=== PATIENT | female | born 1990 | race Caucasian/White ===

== ENCOUNTER 2017-03-04 12:50 | Emergency (ER) | payer BC, MEDICAID ==
[2017-03-04] MEDS ORDERED: SODIUM CHLORIDE 0.9% 1,000 ML IV STA (13:27)
[2017-03-04] MEDS ORDERED: ACETAMINOPHEN TAB 500 MG TAB PO STA (13:27)
[2017-03-04] MEDS ORDERED: diphenhydrAMINE 50 MG CAP PO STA (13:36)
--- NOTE | 2017-03-04 13:39 | ED ---
General Adult HPI - General Chief complaint: Fever Stated complaint: eye pain Time Seen by Provider: 03/04/17 13:18 Source: patient, family, RN notes reviewed Mode of arrival: ambulatory Limitations: no limitations - History of Present Illness Initial comments: History of present illness a 26-year-old female here for complaint of sore throat. The patient's temperature is 11.7 she did not know she had that. Patient also has mild swelling to the left upper eyelid and a rash on the outside of her left elbow. It blanches. Mild headache she did have a stomachache the last half an hour 2 days ago. She works in a [employer]. - Related Data Home Medications Medication Instructions Recorded Confirmed No Known Home Medications [No 06/18/14 03/04/17 Known Home Medications] Allergies Allergy/AdvReac Type Severity Reaction Status Date / Time No Known Allergies Allergy Verified 03/04/17 13:11 Review of Systems ROS Statement: Those systems with pertinent positive or pertinent negative responses have been documented in the HPI. Review of systems. The patient has a mild headache no change in visual acuity. Mild swelling to the left upper eyelid highly edematous but not difficulty or pain movement of the eye. She does have a sore throat with enlarged tonsils no stiff neck. She does have a reddened pharynx and tonsillitis. With anterior cervical lymphadenopathy. No chest pain or shortness of breath no cough. She does have a rash which blanches on her left arm. No abdominal pain. Generalized muscle aches and pains with fever. All systems are reviewed Past medical problems significant for polycythemia vera. The patient has not had a phlebotomy for 2 years. She states she lost a lot of weight since then. The patient's surgeries include a laminectomy. Family history father has polycythemia Vera. Patient denies ALLERGIES nonsmoker nondrinker. ROS Other: All systems not noted in ROS Statement are negative. Past Medical History Past Medical History: No Reported History History of Any Multi-Drug Resistant Organisms: None Reported Additional Past Surgical History / Comment(s): Hx. back surgery age 20 Hx. gastric sleeve aug 2012 Past Psychological History: Anxiety, Depression, Panic Disorder Smoking Status: Never smoker Past Alcohol Use History: None Reported Past Drug Use History: None Reported - Past Family History Father Additional Family Medical History / Comment(s): Father - blood disorder Htn both parents General Exam - General Exam Comments Initial Comments: General: The patient is awake and alert, complaining of sore throat. Mild headache but no stiff neck. Rash to her left elbow area. Muscle aches and pains. Vital signs shows temperature 101.7 pulse 120 her story rate 18 pulse ox 98% room air blood pressure 132/79 Eye: Pupils are equal, round and reactive to light, extra-ocular movements are intact ; there is normal conjunctiva bilaterally. No signs of icterus. Left eyelid is mildly edematous. No known causes or ALLERGIES. Ears, nose, mouth and throat: Patient has reddened pharynx and some exudate on the tonsils more on the left than the right. She has circumoral pallor. Neck: The neck is supple, there is no tenderness , positive anterior cervical lymphadenopathy. No meningismus. No stiff neck. Cardiovascular: Tachycardic heart rate 120. Patient does have fever. No murmur, rub or gallop is appreciated. Respiratory: Lungs are clear to auscultation, respirations are non-labored, breath sounds are equal. No wheezes, stridor, rales, or rhonchi. Gastrointestinal: Soft, non-distended, non-tender abdomen without masses or organomegaly noted. There is no rebound or guarding present. No CVA tenderness. Bowel sounds are unremarkable. Patient had 30 minutes of abdominal pain 2 days ago none now. Back: There is no tenderness to palpation in the midline. There is no obvious deformity. No rashes noted. Musculoskeletal: Normal ROM, no tenderness, There is no pedal edema. There is no calf tenderness or swelling. Sensation intact. Pulses equal bilaterally 2+. Patient complains of muscle aches and pains. Neurological: CN II-XII intact, There are no obvious motor or sensory deficits. Coordination appears grossly intact. Speech is normal. No neuro deficits. Skin: Patient has blanching rash on the outside aspect of her left elbow area. She has not been on a new medication, she cannot think of any irritants or thinks may be ALLERGIC to environment. Denies being in the sun. Limitations: no limitations Course Vital Signs 03/04/17 03/04/17 03/04/17 12:52 13:56 14:19 Temperature 101.7 F H 103.1 F H 102.8 F H Pulse Rate 120 H 94 Respiratory 18 16 Rate Blood Pressure 132/79 122/68 O2 Sat by Pulse 98 100 Oximetry 03/04/17 03/04/17 14:37 15:13 Temperature 101.4 F H Pulse Rate 92 Respiratory 16 Rate Blood Pressure 119/66 O2 Sat by Pulse 98 Oximetry Medical Decision Making - Medical Decision Making Medical decision making the patient's labs show white count of 4.6 hemoglobin 10.4 with hematocrit of 38. The patient's urine shows only 5 WBCs and 0 reds. Strep test was negative, influenza AB-, Monospot negative. The patient's electrolytes show potassium 4.0 BUN 6 creatinine 0.66 and GFR greater than 60. The patient's feeling much better after IV he duration and Tylenol and Toradol. We discussed viral versus bacterial infections this time the patient appears to have viral infection. She'll be advised to continue with Tylenol for fever. Follow-up with family physician. Call has been put out to our director stage and I will discuss with him the current findings as the patient has a history of polycythemia vera with recurrent hemoglobin 10 hematocrit 38. And some changes on manual examination of the blood differentials. Patient's rash is gone away shortly couldn't continued on Benadryl 25 mg 4 times daily for the next 3 days. Told increase her fluids use Tylenol. Return to emergency room if she has a difficulties or problems. - Lab Data Result diagrams: 03/04/17 13:45 03/04/17 13:45 Lab Results 03/04/17 03/04/17 03/04/17 Range/Units 13:33 13:45 13:45 WBC 4.6 (3.8-10.6) k/uL RBC 6.02 H (3.80-5.40) m/uL Hgb 10.4 L (11.4-16.0) gm/dL Hct 38.4 (34.0-46.0) % MCV 63.9 L (80.0-100.0) fL MCH 17.3 L (25.0-35.0) pg MCHC 27.1 L (31.0-37.0) g/dL RDW 18.0 H (11.5-15.5) % Plt Count 199 (150-450) k/uL Neutrophils % (Manual) 73.0 % Band Neutrophils % 2.0 % Lymphocytes % (Manual) 12.0 % Monocytes % (Manual) 13.0 % Neutrophils # (Manual) 3.5 (1.3-7.7) k/uL Lymphocytes # (Manual) 0.6 L (1.0-4.8) k/uL Monocytes # (Manual) 0.6 (0-1.0) k/uL Nucleated RBCs 0 (0-0) /100 WBC Manual Slide Review Performed Polychromasia Present Hypochromasia Marked Hypochromasia (manual) Present Poikilocytosis Slight Poikilocytosis (manual Present Anisocytosis Slight Anisocytosis (manual) Present Microcytosis Marked Tear Drop Cells Present Ovalocytes Present Sodium 139 (137-145) mmol/L Potassium 4.0 (3.5-5.1) mmol/L Chloride 106 (98-107) mmol/L Carbon Dioxide 24 (22-30) mmol/L Anion Gap 9 mmol/L BUN 6 L (7-17) mg/dL Creatinine 0.66 (0.52-1.04) mg/dL Est GFR (MDRD) Af Amer >60 (>60 ml/min/1.73 sqM) Est GFR (MDRD) Non-Af >60 (>60 ml/min/1.73 sqM) Glucose 90 (74-99) mg/dL Plasma Lactic Acid Levon (0.7-2.0) mmol/L Calcium 8.3 L (8.4-10.2) mg/dL Total Bilirubin 1.0 (0.2-1.3) mg/dL AST 30 (14-36) U/L ALT 24 (9-52) U/L Alkaline Phosphatase 62 (38-126) U/L Total Protein 7.5 (6.3-8.2) g/dL Albumin 4.3 (3.5-5.0) g/dL Urine Color Urine Appearance (Clear) Urine pH (5.0-8.0) Ur Specific [place] (1.001-1.035) Urine Protein (Negative) Urine Glucose (UA) (Negative) Urine Ketones (Negative) Urine Blood (Negative) Urine Nitrite (Negative) Urine Bilirubin (Negative) Urine Urobilinogen (<2.0) mg/dL Ur Leukocyte Esterase (Negative) Urine WBC (0-5) /hpf Ur Squamous Epith Cells (0-4) /hpf Urine Mucus (None) /hpf Urine HCG, Qual (Not Detectd) Heterophile Antibody (Negative) Influenza Type A RNA (Not Detectd) Influenza Type B (PCR) (Not Detectd) Group A Strep Rapid Negative (Negative) 03/04/17 03/04/17 03/04/17 Range/Units 13:45 13:45 13:45 WBC (3.8-10.6) k/uL RBC (3.80-5.40) m/uL Hgb (11.4-16.0) gm/dL Hct (34.0-46.0) % MCV (80.0-100.0) fL MCH (25.0-35.0) pg MCHC (31.0-37.0) g/dL RDW (11.5-15.5) % Plt Count (150-450) k/uL Neutrophils % (Manual) % Band Neutrophils % % Lymphocytes % (Manual) % Monocytes % (Manual) % Neutrophils # (Manual) (1.3-7.7) k/uL Lymphocytes # (Manual) (1.0-4.8) k/uL Monocytes # (Manual) (0-1.0) k/uL Nucleated RBCs (0-0) /100 WBC Manual Slide Review Polychromasia Hypochromasia Hypochromasia (manual) Poikilocytosis Poikilocytosis (manual Anisocytosis Anisocytosis (manual) Microcytosis Tear Drop Cells Ovalocytes Sodium (137-145) mmol/L Potassium (3.5-5.1) mmol/L Chloride (98-107) mmol/L Carbon Dioxide (22-30) mmol/L Anion Gap mmol/L BUN (7-17) mg/dL Creatinine (0.52-1.04) mg/dL Est GFR (MDRD) Af Amer (>60 ml/min/1.73 sqM) Est GFR (MDRD) Non-Af (>60 ml/min/1.73 sqM) Glucose (74-99) mg/dL Plasma Lactic Acid Levon 0.9 (0.7-2.0) mmol/L Calcium (8.4-10.2) mg/dL Total Bilirubin (0.2-1.3) mg/dL AST (14-36) U/L ALT (9-52) U/L Alkaline Phosphatase (38-126) U/L Total Protein (6.3-8.2) g/dL Albumin (3.5-5.0) g/dL Urine Color Urine Appearance (Clear) Urine pH (5.0-8.0) Ur Specific [place] (1.001-1.035) Urine Protein (Negative) Urine Glucose (UA) (Negative) Urine Ketones (Negative) Urine Blood (Negative) Urine Nitrite (Negative) Urine Bilirubin (Negative) Urine Urobilinogen (<2.0) mg/dL Ur Leukocyte Esterase (Negative) Urine WBC (0-5) /hpf Ur Squamous Epith Cells (0-4) /hpf Urine Mucus (None) /hpf Urine HCG, Qual Not Detected (Not Detectd) Heterophile Antibody Negative (Negative) Influenza Type A RNA (Not Detectd) Influenza Type B (PCR) (Not Detectd) Group A Strep Rapid (Negative) 03/04/17 03/04/17 Range/Units 13:45 13:45 WBC (3.8-10.6) k/uL RBC (3.80-5.40) m/uL Hgb (11.4-16.0) gm/dL Hct (34.0-46.0) % MCV (80.0-100.0) fL MCH (25.0-35.0) pg MCHC (31.0-37.0) g/dL RDW (11.5-15.5) % Plt Count (150-450) k/uL Neutrophils % (Manual) % Band Neutrophils % % Lymphocytes % (Manual) % Monocytes % (Manual) % Neutrophils # (Manual) (1.3-7.7) k/uL Lymphocytes # (Manual) (1.0-4.8) k/uL Monocytes # (Manual) (0-1.0) k/uL Nucleated RBCs (0-0) /100 WBC Manual Slide Review Polychromasia Hypochromasia Hypochromasia (manual) Poikilocytosis Poikilocytosis (manual Anisocytosis Anisocytosis (manual) Microcytosis Tear Drop Cells Ovalocytes Sodium (137-145) mmol/L Potassium (3.5-5.1) mmol/L Chloride (98-107) mmol/L Carbon Dioxide (22-30) mmol/L Anion Gap mmol/L BUN (7-17) mg/dL Creatinine (0.52-1.04) mg/dL Est GFR (MDRD) Af Amer (>60 ml/min/1.73 sqM) Est GFR (MDRD) Non-Af (>60 ml/min/1.73 sqM) Glucose (74-99) mg/dL Plasma Lactic Acid Levon (0.7-2.0) mmol/L Calcium (8.4-10.2) mg/dL Total Bilirubin (0.2-1.3) mg/dL AST (14-36) U/L ALT (9-52) U/L Alkaline Phosphatase (38-126) U/L Total Protein (6.3-8.2) g/dL Albumin (3.5-5.0) g/dL Urine Color Yellow Urine Appearance Cloudy H (Clear) Urine pH 7.0 (5.0-8.0) Ur Specific [place] 1.014 (1.001-1.035) Urine Protein Trace H (Negative) Urine Glucose (UA) Negative (Negative) Urine Ketones Trace H (Negative) Urine Blood Negative (Negative) Urine Nitrite Negative (Negative) Urine Bilirubin Negative (Negative) Urine Urobilinogen <2.0 (<2.0) mg/dL Ur Leukocyte Esterase Moderate H (Negative) Urine WBC 5 (0-5) /hpf Ur Squamous Epith Cells 8 H (0-4) /hpf Urine Mucus Rare H (None) /hpf Urine HCG, Qual (Not Detectd) Heterophile Antibody (Negative) Influenza Type A RNA Not Detected (Not Detectd) Influenza Type B (PCR) Not Detected (Not Detectd) Group A Strep Rapid (Negative) Disposition Clinical Impression: Acute viral syndrome Disposition: HOME SELF-CARE Condition: Fair Instructions: Fever in Adults (ED), Viral Syndrome (ED) Additional Instructions: Increase fluids, take Benadryl 25 mg 4 times daily for the next 2 days. Use Tylenol for fever. Follow-up with family physician for follow-up concerning the blood differential. The strep test which was reported to be negative today may be reported as positive tomorrow which case antibiotics of be called and at that time. Referrals: González Kim MD [Primary Care Provider] - 1-2 days Time of Disposition: 16:30
[2017-03-04 14:25] LABS: ALT 24 U/L (9-52); AST 30 U/L (14-36); Alkaline Phosphatase 62 U/L (38-126); Anion Gap 9 mmol/L; Appearance,Urine Cloudy (Clear); Bilirubin,Urine Negative (Negative); Blood Urea Nitrogen 6 mg/dL (7-17); Calcium 8.3 mg/dL (8.4-10.2); Carbon Dioxide 24 mmol/L (22-30); Chloride 106 mmol/L (98-107); Glucose 90 mg/dL (74-99); Glucose,Urine (UA) Negative (Negative); Ketones,Urine Trace (Negative); Leukocyte Esterase,Urine Moderate (Negative); Mucus,Urine Rare /hpf; Nitrite,Urine Negative (Negative); Non-African American GFR(MDRD) >60 (>60 ml/min/1.73 sqM); Particle Count 14567; Protein,Urine Trace (Negative); Sodium 139 mmol/L (137-145); Specific Gravity,Urine 1.014 (1.001-1.035); Squamous Epithelial Cell,Urine 8 /hpf (0-4); Total Protein 7.5 g/dL (6.3-8.2); UA Billing (MACRO vs. MICRO) MICRO; Urobilinogen,Urine <2.0 mg/dL (<2.0); WBC,Urine 5 /hpf (0-5)
[2017-03-04] MEDS ORDERED: KETOROLAC 30 MG/ML 1 ML VIAL IVP STA (14:26)
[2017-03-04 14:41] LABS: Anisocytosis Slight; CH 17.3; CHCM 27.3; HCT 38.4 % (34.0-46.0); HDW 3.46; HGB 10.4 gm/dL (11.4-16.0); Hypochromasia Marked; MCH 17.3 pg (25.0-35.0); MCHC 27.1 g/dL (31.0-37.0); MCV 63.9 fL (80.0-100.0); Mean Platelet Volume 6.5; Microcytosis Marked; Poikilocytosis Slight; RBC 6.02 m/uL (3.80-5.40); WBC 4.6 k/uL (3.8-10.6)
[2017-03-04 14:56] LABS: Add Differential Manual Differential
[2017-03-04 15:01] LABS: Nucleated Red Blood Cells 0 /100 WBC (0-0); Ovalocytes Present; Polychromasia Present; Total Cells Counted 100
[2017-03-04 15:02] LABS: Manual Review Performed; Tear Drop Cells Present
[2017-03-04 16:38] VITALS: BP 106/65; PULSE 86; RESP 18; TEMP 99.6
== END 2017-03-04 16:39 | disposition home or self-care (01) ==
LOC: EC 12:50
DX: B34.9 Viral infection, unspecified (principal); R00.0 Tachycardia, unspecified
CPT/HCPCS: 99283; 96374; 96361; 36415; 80053; 83605; 85025; 86308; 81001; 81025; 87040; 87086; 87081; 87430; 87502; J1885

== ENCOUNTER → 2017-07-09 | Outpatient (CLI) | payer BC, MEDICAID ==
--- NOTE | 2017-07-09 11:51 | XR ---
EXAMINATION TYPE: XR humerus RT DATE OF EXAM: 07/09/2017 COMPARISON: NONE HISTORY: Pain and swelling TECHNIQUE: 2 views submitted. FINDINGS: The osseous structures are intact and the joint spaces are preserved. IMPRESSION: 1. No acute osseous abnormality.
== END ==
LOC: RADXRMAIN 10:46
PROVIDERS: ATTEND Family Medicine
DX: M79.601 Pain in right arm (principal)

== ENCOUNTER → 2017-08-13 | Outpatient (CLI) | payer MEDICAID ==
--- NOTE | 2017-08-13 08:00 | MR ---
EXAMINATION TYPE: MR shoulder RT wo con DATE OF EXAM: 08/13/2017 COMPARISON: NONE HISTORY: Right shoulder pain TECHNIQUE: Multiplanar, multisequence imaging of the right shoulder is performed without contrast. FINDINGS: Rotator Cuff: Is intrasubstance signal seen in the distal margin of the infraspinatus tendon near the insertion compatible with tendinosis. No definite through thickness tear or retraction identified. T here is edema and ill definition near the musculotendinous junction of supraspinatus tendon compatibl e with tendinosis and bursal surface partial tear or fraying. Acromioclavicular Joint: There is slight elevation of the clavicle relative the acromion. There is no active edema. Glenohumeral Joint: Joint spaces preserved. Inferior glenohumeral ligament intact. No joint effusion. Labrum: The labrum appears grossly intact given limitation of non-arthrogram study. Biceps Tendon: The long head of biceps is in normal location within bicipital groove. Bone marrow signal: No focal abnormal marrow signal is appreciated. Other: No additional significant abnormality is appreciated. IMPRESSION: 1. Findings are suggestive of infraspinatus tendinosis with no definite tear. 2. There is elevation of the clavicle relative to the acromium. No active edema is seen within the garret int and is likely chronic. This can be associated with previous AC joint separation. Correlate for hi story of previous trauma. 3. There is edema and ill definition near the musculotendinous junction of supraspinatus tendon pawel tible with tendinosis and bursal surface partial tear or fraying. No through thickness tear or retrac tion. Trace amount of fluid along the superior margin of the musculotendinous junction most likely is postinflammatory rather than postinfectious but should be correlated clinically
== END | disposition home or self-care (01) ==
LOC: RADMRIMAIN 06:00
PROVIDERS: ATTEND Family Medicine
DX: M75.81 Other shoulder lesions, right shoulder (principal); R60.0 Localized edema

== ENCOUNTER 2019-04-04 11:48 | Emergency (ER) | payer MEDICAID ==
[2019-04-04 11:56] VITALS: RESP 18
[2019-04-04] MEDS ORDERED: SODIUM CHLORIDE 0.9% 1,000 ML IV ONE (12:13)
--- NOTE | 2019-04-04 12:18 | ED ---
General Adult HPI <Yobany Nazario - Last Filed: 04/04/19 15:25> - General Source: patient, RN notes reviewed Mode of arrival: ambulatory Limitations: no limitations <Juan Loving - Last Filed: 04/04/19 15:33> - General Chief complaint: Abdominal Pain Stated complaint: 6wks preg, abd pain Time Seen by Provider: 04/04/19 11:58 - History of Present Illness Initial comments: Romeo is a well-appearing 28 year old female with a past medical history of polycythemia vera. Patient is presenting to the emergency department for a chief complaint of right lower pelvic pain times one day. Patient states that earlier this when she had a lot of cramping in her right lower abdomen and that today she started to notice a sharp pain. States that she is approximately 6 weeks with an LMP of February 18. States that she called her [facility] office of Dr Khan and nurse stated she should come to the ER to rule out ectopic as she has not yet had a confirmed intrauterine . Patient denies any vaginal bleeding. Denies any vaginal discharge. Denies any fevers or chills. Denies any nausea vomiting or diarrhea.Patient has no other complaints at this time including shortness of breath, chest pain, nausea or vomiting, headache, or visual changes. (Juan Loving) - Related Data Home Medications Medication Instructions Recorded Confirmed No Known Home Medications 06/18/14 06/12/18 Allergies Allergy/AdvReac Type Severity Reaction Status Date / Time No Known Allergies Allergy Verified 04/04/19 11:51 Review of Systems ROS Other: All systems not noted in ROS Statement are negative. <Yobany Nazario - Last Filed: 04/04/19 15:25> ROS Other: All systems not noted in ROS Statement are negative. <Juan Loving - Last Filed: 04/04/19 15:33> ROS Statement: Those systems with pertinent positive or pertinent negative responses have been documented in the HPI. 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 back surgery age 20 Hx. gastric sleeve aug 2012, R ankle Past Psychological History: Anxiety, Depression, Panic Disorder Smoking Status: Never smoker Past Alcohol Use History: None Reported Past Drug Use History: None Reported - Past Family History Father Additional Family Medical History / Comment(s): Father - blood disorder Htn both parents <Juan Loving P - Last Filed: 04/04/19 15:33> General Exam Limitations: no limitations General appearance: alert, in no apparent distress Head exam: Present: atraumatic, normocephalic, normal inspection Eye exam: Present: normal appearance, PERRL, EOMI. Absent: scleral icterus, conjunctival injection, periorbital swelling ENT exam: Present: normal exam, mucous membranes moist Neck exam: Present: normal inspection, full ROM. Absent: tenderness, meningismus, lymphadenopathy Respiratory exam: Present: normal lung sounds bilaterally. Absent: respiratory distress, wheezes, rales, rhonchi, stridor Cardiovascular Exam: Present: regular rate, normal rhythm, normal heart sounds. Absent: systolic murmur, diastolic murmur, rubs, gallop, clicks GI/Abdominal exam: Present: soft, tenderness (Minimal right lower quadrant tenderness without guarding or rebound), normal bowel sounds. Absent: distended, guarding, rebound, rigid Expanded GI/Abdominal exam: Absent: psoas sign, obturator sign, heel tap sign, Coleman's sign, Rovsing's sign, tenderness at McBurney's Point External exam: Present: normal external exam. Absent: erythema, swelling, lesions, lacerations, ecchymosis Speculum exam: Present: normal speculum exam. Absent: erythema, vaginal discharge, cervical discharge, vaginal bleeding, foreign body, tissue, laceration By manual exam: Present: normal by manual exam, adnexal tenderness (minimal right sided adnexal tenderness). Absent: cervical motion tenderness, adnexal mass, uterine enlargement, uterine tenderness Neurological exam: Present: alert, oriented X3, CN II-XII intact Psychiatric exam: Present: normal affect, normal mood <Juan Lvoing P - Last Filed: 04/04/19 15:33> Course Vital Signs 04/04/19 04/04/19 11:51 15:06 Temperature 98 F 98.2 F Pulse Rate 81 78 Respiratory 18 18 Rate Blood Pressure 144/90 116/71 O2 Sat by Pulse 100 100 Oximetry Medical Decision Making - Lab Data Result diagrams: 04/04/19 12:41 04/04/19 12:41 <Yobany Nazario - Last Filed: 04/04/19 15:25> - Lab Data Result diagrams: 04/04/19 12:41 04/04/19 12:41 <Juan Loving - Last Filed: 04/04/19 15:33> - Medical Decision Making Discussed patient case with Dr. her terrazas be who is occupational therapy department chair for Dr. manuel. Dr. her mk parker is amenable for patient to be discharge for 48 hour beta Quant and serial beta clots. Patient appears stable at bedside currently. Still to follow-up on Sunday with her [facility]. (Yobany Nazario) 28-year-old female presents to the emergency department for a chief complaint of right lower quadrant pain. Patient is a currently 6 weeks with an LMP of February 18. She is following up with Dr. khan but has not yet had an ultrasound confirming an intrauterine . On exam patient has some right adnexal tenderness which is minimal in nature. Vitals are stable. Hemoglobin is 11.3 which is chronic. CMP is unremarkable. HCG Quant is 511. Urine is negative for infection or blood. Ultrasound was performed which showed no evidence of intrauterine . There is a cystic lesion seen within the right adnexa. Differential includes normal too early to detect, missed , or ectopic . At this time I am not concerned for appendicitis given patient has minimal abdominal tenderness with a normal white count and no fever. Dr Nazario discussed this case with Dr. Taylor who is in call for Dr. Escobar. She recommends repeat beta hCG in 48 hours. Recommends follow-up with Dr Khan. Patient is comfortable with this. Patient will be discharged home to follow-up outpatient however will return if she has any worsening symptoms or severe pain. (Jaun Loving) - Lab Data Lab Results 04/04/19 04/04/19 04/04/19 Range/Units 12:41 12:41 12:41 WBC 4.0 (3.8-10.6) k/uL RBC 6.33 H (3.80-5.40) m/uL Hgb 11.3 L (11.4-16.0) gm/dL Hct 41.0 (34.0-46.0) % MCV 64.8 L (80.0-100.0) fL MCH 17.8 L (25.0-35.0) pg MCHC 27.4 L (31.0-37.0) g/dL RDW 18.2 H (11.5-15.5) % Plt Count 301 (150-450) k/uL Neutrophils % (Manual) 55 % Lymphocytes % (Manual) 27 % Monocytes % (Manual) 17 % Eosinophils % (Manual) 1 % Neutrophils # (Manual) 2.20 (1.3-7.7) k/uL Lymphocytes # (Manual) 1.08 (1.0-4.8) k/uL Monocytes # (Manual) 0.68 (0-1.0) k/uL Eosinophils # (Manual) 0.04 (0-0.7) k/uL Nucleated RBCs 0 (0-0) /100 WBC Manual Slide Review Performed Large Platelets Present Hypochromasia Marked Poikilocytosis Slight Anisocytosis Slight Microcytosis Marked Sodium 139 (137-145) mmol/L Potassium 4.4 (3.5-5.1) mmol/L Chloride 106 (98-107) mmol/L Carbon Dioxide 24 (22-30) mmol/L Anion Gap 9 mmol/L BUN 10 (7-17) mg/dL Creatinine 0.55 (0.52-1.04) mg/dL Est GFR (CKD-EPI)AfAm >90 (>60 ml/min/1.73 sqM) Est GFR (CKD-EPI)NonAf >90 (>60 ml/min/1.73 sqM) Glucose 87 (74-99) mg/dL Calcium 9.1 (8.4-10.2) mg/dL Total Bilirubin 0.8 (0.2-1.3) mg/dL AST 18 (14-36) U/L ALT 18 (9-52) U/L Alkaline Phosphatase 38 (38-126) U/L Total Protein 7.1 (6.3-8.2) g/dL Albumin 4.2 (3.5-5.0) g/dL HCG, Quant 511.9 mIU/mL Urine Color Urine Appearance (Clear) Urine pH (5.0-8.0) Ur Specific Saxe (1.001-1.035) Urine Protein (Negative) Urine Glucose (UA) (Negative) Urine Ketones (Negative) Urine Blood (Negative) Urine Nitrite (Negative) Urine Bilirubin (Negative) Urine Urobilinogen (<2.0) mg/dL Ur Leukocyte Esterase (Negative) Trichomonas Ag (Rapid) Negative (Negative) 04/04/19 Range/Units 12:41 WBC (3.8-10.6) k/uL RBC (3.80-5.40) m/uL Hgb (11.4-16.0) gm/dL Hct (34.0-46.0) % MCV (80.0-100.0) fL MCH (25.0-35.0) pg MCHC (31.0-37.0) g/dL RDW (11.5-15.5) % Plt Count (150-450) k/uL Neutrophils % (Manual) % Lymphocytes % (Manual) % Monocytes % (Manual) % Eosinophils % (Manual) % Neutrophils # (Manual) (1.3-7.7) k/uL Lymphocytes # (Manual) (1.0-4.8) k/uL Monocytes # (Manual) (0-1.0) k/uL Eosinophils # (Manual) (0-0.7) k/uL Nucleated RBCs (0-0) /100 WBC Manual Slide Review Large Platelets Hypochromasia Poikilocytosis Anisocytosis Microcytosis Sodium (137-145) mmol/L Potassium (3.5-5.1) mmol/L Chloride (98-107) mmol/L Carbon Dioxide (22-30) mmol/L Anion Gap mmol/L BUN (7-17) mg/dL Creatinine (0.52-1.04) mg/dL Est GFR (CKD-EPI)AfAm (>60 ml/min/1.73 sqM) Est GFR (CKD-EPI)NonAf (>60 ml/min/1.73 sqM) Glucose (74-99) mg/dL Calcium (8.4-10.2) mg/dL Total Bilirubin (0.2-1.3) mg/dL AST (14-36) U/L ALT (9-52) U/L Alkaline Phosphatase (38-126) U/L Total Protein (6.3-8.2) g/dL Albumin (3.5-5.0) g/dL HCG, Quant mIU/mL Urine Color Light Yellow Urine Appearance Clear (Clear) Urine pH 7.5 (5.0-8.0) Ur Specific Saxe 1.009 (1.001-1.035) Urine Protein Negative (Negative) Urine Glucose (UA) Negative (Negative) Urine Ketones Negative (Negative) Urine Blood Negative (Negative) Urine Nitrite Negative (Negative) Urine Bilirubin Negative (Negative) Urine Urobilinogen <2.0 (<2.0) mg/dL Ur Leukocyte Esterase Negative (Negative) Trichomonas Ag (Rapid) (Negative) Disposition <Yobany Nazario - Last Filed: 04/04/19 15:25> Is patient prescribed a controlled substance at d/c from ED?: No Time of Disposition: 15:31 <Juan Loving - Last Filed: 04/04/19 15:33> Clinical Impression: Pelvic pain, Cyst of ovary, right Disposition: HOME SELF-CARE Condition: Good Instructions (If sedation given, give patient instructions): Abdominal Pain in (ED) Additional Instructions: Please repeat blood work outpatient in 2 days. Please follow-up with Dr. Khan on Sunday. Please return here to the emergency Department if you're having any worsening symptoms or severe pain. Referrals: Abelino Vazquez Jr, [Primary Care Provider] - 1-2 days
[2019-04-04 13:12] LABS: Appearance,Urine Clear (Clear); Bilirubin,Urine Negative (Negative); Blood,Urine Negative (Negative); Color,Urine Light Yellow; Glucose,Urine (UA) Negative (Negative); Ketones,Urine Negative (Negative); Leukocyte Esterase,Urine Negative (Negative); Nitrite,Urine Negative (Negative); PH, Urine 7.5 (5.0-8.0); Protein,Urine Negative (Negative); Specific Gravity,Urine 1.009 (1.001-1.035); Urobilinogen,Urine <2.0 mg/dL (<2.0)
[2019-04-04 13:21] LABS: ALT 18 U/L (9-52); AST 18 U/L (14-36); African American GFR (CKD) >90 (>60 ml/min/1.73 sqM); Albumin 4.2 g/dL (3.5-5.0); Alkaline Phosphatase 38 U/L (38-126); Anion Gap 9 mmol/L; Blood Urea Nitrogen 10 mg/dL (7-17); Calcium 9.1 mg/dL (8.4-10.2); Carbon Dioxide 24 mmol/L (22-30); Chloride 106 mmol/L (98-107); Glucose 87 mg/dL (74-99); Potassium 4.4 mmol/L (3.5-5.1); Sodium 139 mmol/L (137-145); Total Bilirubin 0.8 mg/dL (0.2-1.3); Total Protein 7.1 g/dL (6.3-8.2)
[2019-04-04 13:23] LABS: Anisocytosis Slight; HGB 11.3 gm/dL (11.4-16.0); Hypochromasia Marked; MCH 17.8 pg (25.0-35.0); MCHC 27.4 g/dL (31.0-37.0); MCV 64.8 fL (80.0-100.0); Mean Platelet Volume 8.6; Microcytosis Marked; Platelet Count 301 k/uL (150-450); Poikilocytosis Slight; RBC 6.33 m/uL (3.80-5.40); RDW 18.2 % (11.5-15.5)
[2019-04-04 13:37] LABS: HCG,Quantitative Serum 511.9 mIU/mL
[2019-04-04 13:48] LABS: Eosinophils # (M) 0.04 k/uL (0-0.7); Lymphocytes # (M) 1.08 k/uL (1.0-4.8); Monocytes # (M) 0.68 k/uL (0-1.0); Neutrophils % (M) 55 %; Nucleated Red Blood Cells 0 /100 WBC (0-0); Total Cells Counted 100
[2019-04-04 13:49] LABS: Large Platelets Present
--- NOTE | 2019-04-04 14:16 | US ---
EXAMINATION TYPE: Transabdominal DATE OF EXAM: 04/04/2019 1:42 PM COMPARISON: NONE CLINICAL HISTORY: pain. Right side pain. No spotting. No previous ultrasound. EXAM PERFORMED: Transvaginal (TV) and Transabdominal (TA) EXAM MEASUREMENTS: GESTATIONAL AGE / DATING Dates by LMP: (6 weeks/3 days) EDC: 11/25/2019 Dates by Current Scan for: No IUP seen at this time MATERNAL ANATOMY Uterus: 8.4 x 5.5 x 3.7 cm Right Ovary: 3.7 x 2.3 x 2.3 cm Left Ovary: 3.0 x 2.0 x 2.0 cm Post CDS / Adnexa: anechoic lesion seen adjacent to right ovary in right adnexa = 1.0 x 0.7 x 0.7 cm Presence of free fluid: no Presence of corpus luteal cyst: right hypoechoic lesion - 1.9 x 1.6 x 1.9 cm Presence of subchorionic bleed: no GESTATION / SURVEY IUP: No IUP seen at this time Date of LMP: 02/18/2019, Beta HcG (if available): 511.9 No GS, YS or CRL visualized. Cystic appearing lesion seen adjacent to vs pedunculated from right ova ry= 1.9 cm. IMPRESSION: 1. No evidence of intrauterine . There is a cystic lesion seen within the right adnexa. Diff erential diagnosis would include a normal too early to detect, missed , and given p resence of right adnexal cystic lesion ectopic . Orally with serial beta hCG and pelvic ultr asound as clinically warranted.
[2019-04-04 16:07] VITALS: BP 114/70; PULSE 76; TEMP 98.1
[2019-04-06 14:03] LABS: C. trachomatis,PCR Negative (Neg,Equiv); Chlamydia trachomatis Source Vagina; N. gonorrhoeae,PCR Negative (Neg,Equiv); Neisseria Source Vagina
== END 2019-04-04 16:06 | disposition home or self-care (01) ==
LOC: EC 11:48
DX: O34.81 Maternal care for other abnormalities of pelvic organs, first trimester (principal); N83.201 Unspecified ovarian cyst, right side; Z3A.01 Less than 8 weeks gestation of pregnancy
CPT/HCPCS: 36415; 76801; 76817; 80053; 81003; 84702; 85025; 87491; 87591; 87808; 96360; 99284

== ENCOUNTER → 2019-04-06 | Outpatient (CLI) | payer MEDICAID | END | disposition home or self-care (01) | LOC: LABMAIN 13:03 | PROVIDERS: ATTEND Physician Assistant Medical | DX: O34.81 Maternal care for other abnormalities of pelvic organs, first trimester (principal) | CPT/HCPCS: 36415; 84702 ==

== ENCOUNTER → 2019-04-10 | Outpatient (CLI) | payer MEDICAID ==
[~2019-04-10] MED LIST: METHOTREXATE SODIUM (PF) 25 MG/ML 2 ML VIAL IM ONE
[2019-04-10 17:54] VITALS: BP 117/73; PULSE 73; RESP 18; TEMP 98.1
[2019-04-10 18:50] LABS: ALT 10 U/L (9-52); AST 20 U/L (14-36); African American GFR (CKD) >90 (>60 ml/min/1.73 sqM); Blood Urea Nitrogen 12 mg/dL (7-17)
[2019-04-10 19:06] LABS: Anisocytosis Slight; Basophils # (A) 0.1 k/uL (0-0.2); Basophils % (A) 2 %; Eosinophils # (A) 0.1 k/uL (0-0.7); Eosinophils % (A) 2 %; HCT 39.4 % (34.0-46.0); HGB 10.7 gm/dL (11.4-16.0); Hypochromasia Marked; Lymphocytes # (A) 1.9 k/uL (1.0-4.8); Lymphocytes % (A) 37 %; MCH 17.8 pg (25.0-35.0); MCHC 27.1 g/dL (31.0-37.0); MCV 65.8 fL (80.0-100.0); Mean Platelet Volume 7.3; Microcytosis Marked; Monocytes # (A) 0.4 k/uL (0-1.0); Monocytes % (A) 7 %; Neutrophils # (A) 2.6 k/uL (1.3-7.7); Neutrophils % (A) 50 %; Platelet Count 274 k/uL (150-450); Poikilocytosis Slight; RBC 5.99 m/uL (3.80-5.40); RDW 18.1 % (11.5-15.5); WBC 5.2 k/uL (3.8-10.6)
[2019-04-10 19:07] LABS: HCG,Quantitative Serum 1539.3 mIU/mL
== END ==
LOC: PEDOP 18:15
PROVIDERS: ATTEND Obstetrics & Gynecology Obstetrics
DX: O00.109 Unspecified tubal pregnancy without intrauterine pregnancy (principal); Z3A.00 Weeks of gestation of pregnancy not specified
CPT/HCPCS: 96372; 86900; 86901; 82565; 84450; 84460; 84520; 85025; 86850; 84702; J9260; 99201

== ENCOUNTER → 2019-04-13 | Outpatient (CLI) | payer MEDICAID | END | disposition home or self-care (01) | LOC: RADXRMAIN 14:52 | PROVIDERS: ATTEND Obstetrics & Gynecology Obstetrics | DX: Z53.9 Procedure and treatment not carried out, unspecified reason (principal) ==

== ENCOUNTER → 2019-04-16 | Outpatient (CLI) | payer MEDICAID ==
[2019-04-16 12:41] LABS: Anisocytosis Slight; HCT 40.3 % (34.0-46.0); HGB 10.9 gm/dL (11.4-16.0); Hypochromasia Marked; MCH 18.2 pg (25.0-35.0); MCHC 27.1 g/dL (31.0-37.0); MCV 67.2 fL (80.0-100.0); Mean Platelet Volume 7.3; Microcytosis Marked; Platelet Count 250 k/uL (150-450); Poikilocytosis Slight; RBC 5.99 m/uL (3.80-5.40); RDW 19.2 % (11.5-15.5); WBC 4.3 k/uL (3.8-10.6)
[2019-04-16 18:11] LABS: African American GFR (CKD) 142.8 (60.0-200.0)
== END | disposition home or self-care (01) ==
LOC: LABWHC1 11:47
PROVIDERS: ATTEND Obstetrics & Gynecology Obstetrics
DX: O00.109 Unspecified tubal pregnancy without intrauterine pregnancy (principal)
CPT/HCPCS: 36415; 82565; 84450; 84520; 84702; 85027

== ENCOUNTER → 2019-04-17 | Outpatient (CLI) | payer MEDICAID ==
[~2019-04-17] MED LIST changes: +METHOTREXATE SODIUM (PF) 25 MG/ML 2 ML VIAL IM NR; -METHOTREXATE SODIUM (PF) 25 MG/ML 2 ML VIAL IM ONE
[2019-04-17 13:46] VITALS: BP 116/72; PULSE 73; RESP 16; TEMP 98.3
[2019-04-17 14:05] LABS: Anisocytosis Slight; Basophils % (A) 1 %; Eosinophils # (A) 0.1 k/uL (0-0.7); Eosinophils % (A) 2 %; HCT 41.1 % (34.0-46.0); HGB 11.1 gm/dL (11.4-16.0); Hypochromasia Marked; Lymphocytes # (A) 1.2 k/uL (1.0-4.8); Lymphocytes % (A) 33 %; MCH 18.2 pg (25.0-35.0); MCV 67.5 fL (80.0-100.0); Mean Platelet Volume 7.6; Microcytosis Marked; Monocytes # (A) 0.3 k/uL (0-1.0); Monocytes % (A) 8 %; Neutrophils % (A) 54 %; Platelet Count 260 k/uL (150-450); Poikilocytosis Slight; RBC 6.09 m/uL (3.80-5.40); RDW 19.4 % (11.5-15.5); WBC 3.6 k/uL (3.8-10.6)
[2019-04-17 14:25] LABS: AST 17 U/L (14-36); African American GFR (CKD) >90 (>60 ml/min/1.73 sqM); Blood Urea Nitrogen 13 mg/dL (7-17)
[2019-04-17 18:23] LABS: HCG,Quantitative Serum 2808.3 mIU/mL
[2019-04-17 18:30] LABS: HCG,Qualitative Serum Detected
== END ==
LOC: PROCWHC3 13:22
PROVIDERS: ATTEND Obstetrics & Gynecology
DX: O00.109 Unspecified tubal pregnancy without intrauterine pregnancy (principal); Z3A.00 Weeks of gestation of pregnancy not specified
CPT/HCPCS: 82565; 84450; 84520; 85025; 84702; 36415; 96402; J9260; 84703

== ENCOUNTER → 2019-04-20 | Outpatient (CLI) | payer MEDICAID | END | disposition home or self-care (01) | LOC: LABMAIN 15:12 | PROVIDERS: ATTEND Obstetrics & Gynecology Obstetrics | DX: O00.109 Unspecified tubal pregnancy without intrauterine pregnancy (principal) | CPT/HCPCS: 36415; 84702 ==

== ENCOUNTER → 2019-04-23 | Outpatient (CLI) | payer MEDICAID ==
[2019-04-23 15:30] LABS: Anisocytosis Moderate; HCT 40.4 % (34.0-46.0); Hypochromasia Marked; MCH 18.5 pg (25.0-35.0); MCHC 27.1 g/dL (31.0-37.0); MCV 68.3 fL (80.0-100.0); Mean Platelet Volume 8.1; Microcytosis Marked; Platelet Count 329 k/uL (150-450); Poikilocytosis Slight; RBC 5.92 m/uL (3.80-5.40); RDW 20.6 % (11.5-15.5); WBC 3.8 k/uL (3.8-10.6)
[2019-04-23 18:23] LABS: African American GFR (CKD) 135.7 (60.0-200.0); Non-African American GFR(CKD) 117.1 (60.0-200.0)
== END | disposition home or self-care (01) ==
LOC: LABWHC1 14:16
PROVIDERS: ATTEND Obstetrics & Gynecology Obstetrics
DX: O00.109 Unspecified tubal pregnancy without intrauterine pregnancy (principal)
CPT/HCPCS: 36415; 82565; 84450; 84520; 84702; 85027

== ENCOUNTER → 2019-04-30 | Outpatient (CLI) | payer MEDICAID | END | disposition home or self-care (01) | LOC: LABWHC1 12:25 | PROVIDERS: ATTEND Obstetrics & Gynecology Obstetrics | DX: O00.90 Unspecified ectopic pregnancy without intrauterine pregnancy (principal) | CPT/HCPCS: 36415; 84702 ==

== ENCOUNTER → 2019-05-07 | Outpatient (CLI) | payer MEDICAID | END | disposition home or self-care (01) | LOC: LABWHC1 12:00 | PROVIDERS: ATTEND Obstetrics & Gynecology Obstetrics | DX: O00.90 Unspecified ectopic pregnancy without intrauterine pregnancy (principal) | CPT/HCPCS: 36415; 84702 ==

== ENCOUNTER → 2019-05-14 | Outpatient (CLI) | payer MEDICAID | END | disposition home or self-care (01) | LOC: LABWHC1 12:30 | PROVIDERS: ATTEND Obstetrics & Gynecology Obstetrics | DX: O00.90 Unspecified ectopic pregnancy without intrauterine pregnancy (principal) | CPT/HCPCS: 36415; 84702 ==

== ENCOUNTER → 2019-05-21 | Outpatient (CLI) | payer MEDICAID | END | disposition home or self-care (01) | LOC: LABWHC1 13:37 | PROVIDERS: ATTEND Obstetrics & Gynecology Obstetrics | DX: O00.90 Unspecified ectopic pregnancy without intrauterine pregnancy (principal); Z3A.00 Weeks of gestation of pregnancy not specified | CPT/HCPCS: 36415; 84702 ==

== ENCOUNTER → 2019-05-29 | Outpatient (CLI) | payer MEDICAID | END | disposition home or self-care (01) | LOC: LABWHC1 11:11 | PROVIDERS: ATTEND Obstetrics & Gynecology Obstetrics | DX: O00.90 Unspecified ectopic pregnancy without intrauterine pregnancy (principal) | CPT/HCPCS: 36415; 84702 ==

== ENCOUNTER 2019-08-05 00:23 | Emergency (ER) | payer MEDICAID ==
[2019-08-05 00:28] VITALS: BP 131/86; PULSE 106; RESP 20; TEMP 98
--- NOTE | 2019-08-05 01:09 | ED ---
General Adult HPI - General Chief complaint: Abdominal Pain Stated complaint: rectal prolapse Time Seen by Provider: 08/05/19 00:33 Source: patient Mode of arrival: ambulatory Limitations: no limitations - History of Present Illness Initial comments: 28-year-old female patient presents to the emergency department today for evaluation of possible rectal prolapse. Patient states she has been given with constipation for the last couple of weeks. States she has taken several laxatives. States that today when she was straining to have a bowel movement she felt around her rectal region and felt a "slimy ball". Patient is concerned she may rectal prolapse of presented here for further evaluation. She denies any abdominal pain. Denies any manage he 0 melena. Denies nausea or vomiting. Patient states she has taken milk of magnesia and senna without much relief of constipation. Patient denies any recent rash, fever, chills, shortness breath, chest pain, back pain, numbness, tingling, dizziness, weakness, hematuria, dysuria, urinary urgency, urinary frequency, headache, visual changes, or any other complaints. - Related Data Previous Rx's Medication Instructions Recorded Polyethylene Glycol 3350 [Miralax] 17 gm PO DAILY #30 packet 08/05/19 Allergies Allergy/AdvReac Type Severity Reaction Status Date / Time No Known Allergies Allergy Verified 08/05/19 00:28 Review of Systems ROS Statement: Those systems with pertinent positive or pertinent negative responses have been documented in the HPI. ROS Other: All systems not noted in ROS Statement are negative. 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 back surgery age 20 Hx. gastric sleeve aug 2012, R ankle Past Psychological History: Anxiety, Depression, Panic Disorder Smoking Status: Never smoker Past Alcohol Use History: None Reported Past Drug Use History: None Reported - Past Family History Father Additional Family Medical History / Comment(s): Father - blood disorder Htn both parents General Exam Limitations: no limitations General appearance: alert, in no apparent distress, other (This is a well- developed, well-nourished adult female patient in no acute distress. Vital signs upon presentation are temperature 98.0F, pulse 106, respirations 20, blood pressure 131/86, pulse ox 100% on room air.) ENT exam: Present: normal exam, normal oropharynx, mucous membranes moist Respiratory exam: Present: normal lung sounds bilaterally. Absent: respiratory distress, wheezes, rales, rhonchi, stridor Cardiovascular Exam: Present: regular rate, normal rhythm, normal heart sounds. Absent: systolic murmur, diastolic murmur, rubs, gallop, clicks GI/Abdominal exam: Present: soft, normal bowel sounds. Absent: distended, tenderness, guarding, rebound, rigid Rectal exam: Present: normal inspection, normal rectal tone. Absent: fecal impaction, hemorrhoids Neurological exam: Present: alert, oriented X3, CN II-XII intact Psychiatric exam: Present: normal affect, normal mood Skin exam: Present: warm, dry, intact, normal color. Absent: rash Course Vital Signs 08/05/19 00:24 Temperature 98.0 F Pulse Rate 106 H Respiratory 20 Rate Blood Pressure 131/86 O2 Sat by Pulse 100 Oximetry Medical Decision Making - Medical Decision Making 28-year-old female patient presents to the emergency department today for evaluation possible rectal prolapse. Patient describes a "slimy ball" when straining to have a bowel movement. Did perform rectal exam, no evidence of current rectal prolapse. No current fecal impaction. I did discuss results with the patient. We discussed methods of constipation relief. She'll be given up her prescription for MiraLAX. She is instructed follow up with Neurology for Further Evaluation. Return Parameters Were Discussed in Detail. She Verbalizes Understanding and Agrees with This Plan. Disposition Clinical Impression: Rectal prolapse, Constipation Disposition: HOME SELF-CARE Condition: Good Instructions (If sedation given, give patient instructions): Constipation (ED), High Fiber Diet (ED), Rectal Prolapse (ED) Additional Instructions: Increase fluids. Increase physical activity. Follow-up with her pickle maker for further evaluation. Follow up with your primary care physician for recheck in 1-2 days. Take medications as directed. Return to the emergency department immediately for any new, worsening, or concerning symptoms. Prescriptions: Polyethylene Glycol 3350 [Miralax] 17 gm PO DAILY #30 packet Is patient prescribed a controlled substance at d/c from ED?: No Referrals: Abelino Vazquez Jr, DO [Primary Care Provider] - 1-2 days Davey Arvizu MD [STAFF PHYSICIAN] - 1-2 days Time of Disposition: 01:09
== END 2019-08-05 01:23 | disposition home or self-care (01) ==
LOC: EC 00:23
DX: K62.3 Rectal prolapse (principal); K59.00 Constipation, unspecified; D45 Polycythemia vera
CPT/HCPCS: 99283

== ENCOUNTER → 2019-08-08 | Outpatient (CLI) | payer MEDICAID ==
--- NOTE | 2019-08-08 13:25 | XR ---
EXAMINATION TYPE: XR KUB DATE OF EXAM: 08/08/2019 COMPARISON: NONE HISTORY: Constipation TECHNIQUE: One view abdominal series FINDINGS: The osseous structures are intact. The bowel gas pattern is nonspecific. Small herniation pit or bindu ent lesion involving the femoral neck on the left. Sclerotic margination suggests benign appearance. Measures approximately 5 mm. I question surgical change in the left upper quadrant correlate clinical ly. IMPRESSION: 1. Nonspecific abdomen. There is retained content throughout the bowel correlate for constipation.
[2019-08-08 14:46] LABS: ALT 13 U/L (9-52); AST 24 U/L (14-36); African American GFR (CKD) >90 (>60 ml/min/1.73 sqM); Albumin 4.4 g/dL (3.5-5.0); Alkaline Phosphatase 54 U/L (38-126); Anion Gap 10 mmol/L; Blood Urea Nitrogen 9 mg/dL (7-17); Calcium 9.1 mg/dL (8.4-10.2); Carbon Dioxide 24 mmol/L (22-30); Chloride 105 mmol/L (98-107); Glucose 82 mg/dL (74-99); Potassium 4.6 mmol/L (3.5-5.1); Sodium 139 mmol/L (137-145); Total Bilirubin 0.8 mg/dL (0.2-1.3); Total Protein 7.4 g/dL (6.3-8.2)
[2019-08-08 14:55] LABS: Anisocytosis Slight; Basophils # (A) 0.1 k/uL (0-0.2); Basophils % (A) 2 %; Eosinophils # (A) 0.1 k/uL (0-0.7); Eosinophils % (A) 1 %; HCT 41.6 % (34.0-46.0); HGB 11.5 gm/dL (11.4-16.0); Hypochromasia Marked; Lymphocytes # (A) 1.5 k/uL (1.0-4.8); Lymphocytes % (A) 31 %; MCHC 27.6 g/dL (31.0-37.0); MCV 65.3 fL (80.0-100.0); Mean Platelet Volume 7.4; Microcytosis Marked; Monocytes # (A) 0.4 k/uL (0-1.0); Monocytes % (A) 8 %; Neutrophils # (A) 2.7 k/uL (1.3-7.7); Neutrophils % (A) 56 %; Platelet Count 227 k/uL (150-450); RBC 6.37 m/uL (3.80-5.40); RDW 17.6 % (11.5-15.5); WBC 4.8 k/uL (3.8-10.6)
== END | disposition home or self-care (01) ==
LOC: RADXRMAIN 12:48
PROVIDERS: ATTEND Nurse Practitioner Family
DX: K59.09 Other constipation (principal)
CPT/HCPCS: 74018; 80053; 84443; 85025

== ENCOUNTER → 2019-08-20 | Outpatient (CLI) | payer MEDICAID ==
--- NOTE | 2019-08-20 15:49 | CT ---
EXAMINATION TYPE: CT abdomen w con DATE OF EXAM: 08/20/2019 COMPARISON: HISTORY: LUQ pain, constipation CT DLP: 824 mGycm Automated exposure control for dose reduction was used. TECHNIQUE: Helical acquisition of images was performed from the lung bases through the top of iliac crest to include entire abdomen. CONTRAST: Performed with Oral Contrast and with IV Contrast, patient injected with 100 mL of Isovue 300. FINDINGS: LUNG BASES: No significant abnormality is appreciated. LIVER/GB: Within the right lobe of the liver on axial image 28 there is a hypodense focus which becom es less conspicuous on delayed imaging and may represent hemangioma measuring approximately 11 mm. PANCREAS: No significant abnormality is seen. SPLEEN: No significant abnormality is seen. ADRENALS: No significant abnormality is seen. KIDNEYS: No significant abnormality is seen. BOWEL: Retained fecal debris present throughout the distribution of the visualized portion of the co mary grace LYMPH NODES: No significant abnormality is appreciated. OSSEOUS STRUCTURES: No significant abnormality is seen. FREE AIR: No Free Air visible ASCITES: None visible. RETROPERITONEAL ADENOPATHY: No Retroperitoneal Adenopathy visible. OTHER: Postop changes are present at the gastroesophageal junction, there may be recurrent hiatal her jese, there is soft tissue prominence. IMPRESSION: CORRELATE FOR FECAL STASIS. POSSIBLE HEMANGIOMA WITHIN THE LIVER, ADDITIONAL IMAGING COULD BE PERFORM ED FOR BETTER EVALUATION. FINDINGS AT THE GASTROESOPHAGEAL JUNCTION DESCRIBED..
== END | disposition home or self-care (01) ==
LOC: RADCTMAIN 14:28
PROVIDERS: ATTEND Family Medicine
DX: K59.00 Constipation, unspecified (principal); R10.12 Left upper quadrant pain
CPT/HCPCS: 74160; Q9967

== ENCOUNTER 2020-06-16 14:17 | Emergency (ER) | payer MEDICAID, OTHER ==
[2020-06-16 14:21] VITALS: RESP 18
[2020-06-16] MEDS ORDERED: LIDOCAINE 1% INJ 10MG/ML (20 ML MDV) SQ ONE (14:44)
[2020-06-16] MEDS ORDERED: BACITRACIN OINT 1 EACH PACKET TOPICAL STA (14:44)
[2020-06-16] MEDS ORDERED: DIPH,PERTUS(ACELL)TETVAC-LF 0.5 ML VIAL IM ONE (14:44)
--- NOTE | 2020-06-16 15:05 | XR ---
EXAMINATION TYPE: XR ankle complete RT DATE OF EXAM: 06/16/2020 COMPARISON: NONE HISTORY: Pain TECHNIQUE: Frontal, lateral and oblique images of the right ankle are obtained. COMPARISON: None. FINDINGS: There is no acute fracture/dislocation evident. The joint spaces appear within normal laird its. Soft tissue laceration noted 5.7 cm proximal to the ankle mortise. No radiopaque foreign bodies identified. IMPRESSION: There is no acute fracture or dislocation seen.
[2020-06-16] MEDS ORDERED: CEPHALEXIN 500MG STARTER PACK 4 CAP BTL PO STA (15:38)
--- NOTE | 2020-06-16 15:38 | ED ---
General Adult HPI - General Chief complaint: Wound/Laceration Stated complaint: R Leg Lac Time Seen by Provider: 06/16/20 14:32 Source: patient, RN notes reviewed Mode of arrival: ambulatory Limitations: no limitations - History of Present Illness Initial comments: 29-year-old female presents to the emergency room for a chief complaint of laceration. Patient reports that she was carrying a bag full of trash when a piece of glass cut her leg. Patient denies any difficulty moving or flexing her ankle. Patient is not up-to-date on tetanus. Denies any other injuries. Patient states the piece of glass was large and she does not believe tear to be foreign bodies.Patient has no other complaints at this time including shortness of breath, chest pain, abdominal pain, nausea or vomiting, headache, or visual changes. - Related Data Previous Rx's Medication Instructions Recorded polyethylene glycoL 3350 [Miralax] 17 gm PO DAILY #30 packet 08/05/19 Cephalexin [Keflex] 500 mg PO Q6HR 5 Days #20 cap 06/16/20 Allergies Allergy/AdvReac Type Severity Reaction Status Date / Time No Known Allergies Allergy Verified 06/16/20 14:21 Review of Systems ROS Statement: Those systems with pertinent positive or pertinent negative responses have been documented in the HPI. ROS Other: All systems not noted in ROS Statement are negative. 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 back surgery age 20 Hx. gastric sleeve aug 2012, R ankle Past Psychological History: Anxiety, Depression, Panic Disorder Past Alcohol Use History: None Reported Past Drug Use History: None Reported - Past Family History Father Additional Family Medical History / Comment(s): Father - blood disorder Htn both parents General Exam Limitations: no limitations General appearance: alert, in no apparent distress Head exam: Present: atraumatic, normocephalic, normal inspection Eye exam: Present: normal appearance, PERRL, EOMI. Absent: scleral icterus, conjunctival injection, periorbital swelling ENT exam: Present: normal exam, mucous membranes moist Neck exam: Present: normal inspection, full ROM. Absent: tenderness, meningismus, lymphadenopathy Respiratory exam: Present: normal lung sounds bilaterally. Absent: respiratory distress, wheezes, rales, rhonchi, stridor Cardiovascular Exam: Present: regular rate, normal rhythm, normal heart sounds. Absent: systolic murmur, diastolic murmur, rubs, gallop, clicks Extremities exam: Present: full ROM (Full range of motion of the right ankle.), normal capillary refill (Capillary refill less than 2 seconds, DP pulse 2+ right lower extremity.), other (Patient has a 4 cm laceration noted about 5cm distal to the lateral malleolus. No obvious foreign bodies. I can see a small part of the fibulais longus tendon, there are no tendon lacerations or ruptures.) Course Vital Signs 06/16/20 14:18 Temperature 97.9 F Pulse Rate 91 Respiratory 18 Rate Blood Pressure 135/87 O2 Sat by Pulse 99 Oximetry Procedures - Laceration Laceration #1 Consent Obtained: verbal consent Indication: laceration Site: lower extremity Size (cm): 4 Description: linear Depth: simple, single layer Anesthetic Used: lidocaine 1% Anesthesia Technique: local infiltration Amount (mls): 7 Pre-repair: wound explored, irrigated extensively (with saline pressure irrigation), deep structures intact Type of Sutures: nylon Size of Sutures: 4-0 Number of Sutures: 8 Technique: simple, interrupted (7), horizontal mattress (1) Patient Tolerated Procedure: well, no complications Medical Decision Making - Medical Decision Making Wound was irrigated with saline pressure irrigation. It was then approximated using 7 simple sutures and one horizontal mattress. As discussed do not see evidence of foreign body or tendon rupture. Patient will be put on Keflex given that of laceration. She will follow-up with her doctor. She will return here for any worsening symptoms. She will return in 10-14 days for suture removal. Disposition Clinical Impression: Laceration Disposition: HOME SELF-CARE Condition: Good Instructions (If sedation given, give patient instructions): Care For Your Stitches (ED), Laceration (ED) Additional Instructions: Please keep the area clean. Apply antibiotic ointment twice daily. Take antibiotic as directed. Follow-up with your doctor in one to 2 days for recheck. If you have any worsening symptoms or signs of infection such as spreading or streaking redness, drainage, or fever return to the emergency room. Otherwise return in 10-14 days for suture removal. You have 7 simple interrupted sutures and one horizontal mattress in the middle. Prescriptions: Cephalexin [Keflex] 500 mg PO Q6HR 5 Days #20 cap Is patient prescribed a controlled substance at d/c from ED?: No Referrals: Abelino Vazquez Jr, DO [Primary Care Provider] - 1-2 days Time of Disposition: 15:37
[2020-06-16 15:46] VITALS: BP 119/71; PULSE 78; TEMP 98.3
== END 2020-06-16 15:42 | disposition home or self-care (01) ==
LOC: EC 14:17
DX: S81.811A Laceration without foreign body, right lower leg, initial encounter (principal); Z23 Encounter for immunization; W25.XXXA Contact with sharp glass, initial encounter
CPT/HCPCS: 73610; 90715; 99283; 12002; 90471; J2001

== ENCOUNTER 2021-08-12 09:26 | Outpatient (CLI) | payer BC ==
[2021-08-12 10:25] VITALS: BP 123/69; PULSE 83; RESP 16; TEMP 97.3
--- NOTE | 2021-10-14 09:21 | P.MSEPDOC ---
Presenting Problems - Arrival Data Date of Arrival on Unit: 08/12/21 Time of Arrival on Unit: 09:30 Mode of Transport: Ambulatory - Complaint OB-Reason for Admission/Chief Complaint: Decreased Movement Medical History - Information : 2 Para: 0 Term: 0 : 0 Abortions: Spontaneous or Elective: 1 Number of Living Children: 0 - Gestational Age Gestational Age by HUY (wks/days): 22 Weeks and 1 Days - History Comment: previous etopic preg. Review of Systems - Review of Systems Constitutional: No problems Breast: No problems ENT: No problems Cardiovascular: No problems Respiratory: No problems Gastrointestinal: No problems Genitourinary: No problems Musculoskeletal: No problems Neurological: No problems Skin: No problems Vital Signs - Temperature Temperature: 97.3 F Temperature Source: Temporal Artery Scan - Pulse Right Radial Pulse Rate: 83 Pulse Assessment Method: Automatic Cuff - Respirations Respiratory Rate: 16 Oxygen Delivery Method: Room Air O2 Sat by Pulse Oximetry: 98 - Blood Pressure Right Arm Blood Pressure: 123/69 Blood Pressure Mean: 87 Blood Pressure Source: Automatic Cuff Medical Screen Scoring - Assessment - Baby A Baseline FHR: 130 Heart Rate - NICHD Category: Category I (Normal) Physician Notification - Physician Notified Physician Notified Date: 08/12/21 Physician Notified Time: 10:15 Physician: Alejandro Jha Order Received: Yes - Notification Comment Comment: home with instructions follow up next appt dr khan 08/02/21 Maternal Triage Index - Non-Urgent/Priority 4 Non-Urgent Priority 4: Yes Criteria Met for Priority 4: not feeling baby move 22 weeks. fht's 130's pt heard movement on monitor. feeling better. occasional cramp and sharp pain rt lower abd. 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 Case reviewed; plan agreed upon as documented in EMR&OBIX.: Yes Diagnosis: RELATED CONDITIONS, UNSPECIFIED, SECOND TRIMESTER
== END 2021-08-12 10:15 | disposition home or self-care (01) ==
LOC: FBPOP 09:26
PROVIDERS: ATTEND Obstetrics & Gynecology
DX: O26.892 Other specified pregnancy related conditions, second trimester (principal); R10.31 Right lower quadrant pain; Z3A.22 22 weeks gestation of pregnancy
CPT/HCPCS: 99213

== ENCOUNTER 2021-11-01 15:20 | Outpatient (CLI) | payer BC ==
[2021-11-01] MEDS ORDERED: BETAMET ACET-BETAMETH SOD PHOS 6 MG/ML MDV IM SCH (16:00)
--- NOTE | 2021-11-01 16:30 | US ---
EXAMINATION TYPE: US OB TV Cervical Measurement DATE OF EXAM: 11/01/2021 COMPARISON: NONE REASON FOR EXAM: Per Ordering Physician?this transvaginal scan is to assess the CERVICAL LENGTH for i ncompetence or funneling. Pain, known third trimester . GESTATIONAL AGE / DATING Physician Established: (33 weeks/5 days) EDC: 12/15/2021 MATERNAL/ SURVEY CERVICAL LENGTH (transvaginal: norm> 2.5cm): 3.2 cm Ultrasound evidence of shortened cervix? no Ultrasound evidence of funneling? no HEART RATE: 133 bpm RHYTHM: Normal heart tones detected. Cervical length measures within normal limits on images obtained between 3.2 and 3.4 cm. IMPRESSION: As above.
[2021-11-01 16:33] VITALS: BP 132/86; PULSE 80; RESP 16; TEMP 97.8
[2021-11-01] MEDS ORDERED: ACETAMINOPHEN IV (For NPO) 1,000 MG in EMPTY BAG 1 BAG IVPB ONE (16:41)
[2021-11-01] MEDS ORDERED: LACTATED RINGERS 500 ML IV ONE (16:41)
[2021-11-01 17:03] LABS: Appearance,Urine Clear (Clear); Bilirubin,Urine Negative (Negative); Blood,Urine Negative (Negative); Color,Urine Yellow; Glucose,Urine (UA) Negative (Negative); Hyaline Casts,Urine 1 /lpf (0-2); Ketones,Urine Trace (Negative); Leukocyte Esterase,Urine Small (Negative); Mucus,Urine Occasional /hpf; Nitrite,Urine Negative (Negative); Protein,Urine Trace (Negative); RBC,Urine <1 /hpf (0-5); Specific Gravity,Urine 1.025 (1.001-1.035); Squamous Epithelial Cell,Urine 4 /hpf (0-4); WBC,Urine 1 /hpf (0-5)
== END 2021-11-01 18:15 | disposition home or self-care (01) ==
LOC: FBPOP 15:20
PROVIDERS: ATTEND Obstetrics & Gynecology Obstetrics
DX: O60.03 Preterm labor without delivery, third trimester (principal); Z3A.33 33 weeks gestation of pregnancy
CPT/HCPCS: 59025; 96361; 96365; 96372; 81001; 76817; J0131; J0702

== ENCOUNTER 2021-11-02 15:35 | Outpatient (CLI) | payer BC ==
[2021-11-02] MEDS ORDERED: BETAMET ACET-BETAMETH SOD PHOS 6 MG/ML MDV IM SCH (16:00)
[2021-11-02 16:38] VITALS: BP 127/75; PULSE 90; RESP 18; TEMP 97.9
== END 2021-11-02 16:38 | disposition home or self-care (01) ==
LOC: FBPOP 15:35
PROVIDERS: ATTEND Obstetrics & Gynecology Obstetrics
DX: O60.03 Preterm labor without delivery, third trimester (principal); Z3A.29 29 weeks gestation of pregnancy
CPT/HCPCS: 96372; J0702

== ENCOUNTER 2021-12-01 21:48 | Inpatient (IN) | payer BC ==
[2021-12-01] MEDS ORDERED: OXYTOCIN 10 UNIT/ML 1 ML VIAL IM PRN (23:34)
[2021-12-01] MEDS ORDERED: METHYLERGONOVINE 0.2 MG/ML 1 ML AMP IM PRN (23:34)
[2021-12-01] MEDS ORDERED: CARBOPROST TROMETHAMINE 250 MCG/ML 1 ML AMP IM PRN (23:34)
[2021-12-01] MEDS ORDERED: LIDOCAINE 1% (PF) 10 MG/ML (30 ML SDV) SQ PRN (23:34)
[2021-12-01] MEDS ORDERED: TERBUTALINE 1 MG/ML VIAL SQ PRN (23:34)
[2021-12-02 00:14] LABS: Anisocytosis Slight; Basophils # (A) 0.1 k/uL (0-0.2); Basophils % (A) 1 %; Eosinophils % (A) 0 %; HCT 39.2 % (34.0-46.0); HGB 11.4 gm/dL (11.4-16.0); Hypochromasia Marked; Lymphocytes # (A) 1.8 k/uL (1.0-4.8); Lymphocytes % (A) 19 %; MCH 20.5 pg (25.0-35.0); MCV 70.7 fL (80.0-100.0); Mean Platelet Volume 11.3; Microcytosis Marked; Monocytes # (A) 0.7 k/uL (0-1.0); Monocytes % (A) 7 %; Neutrophils # (A) 6.7 k/uL (1.3-7.7); Neutrophils % (A) 71 %; Platelet Count 207 k/uL (150-450); Poikilocytosis Slight; RBC 5.55 m/uL (3.80-5.40); RDW 19.5 % (11.5-15.5); WBC 9.5 k/uL (3.8-10.6)
[2021-12-02] MEDS ORDERED: AMPICILLIN 2,000 MG in SODIUM CHLORIDE 0.9% 100 ML IVPB STA (00:24)
[2021-12-02] MEDS: LACTATED RINGERS 1,000 ML IV SCH ×3 (00:35→06:46)
[2021-12-02] MEDS: AMPICILLIN 1,000 MG in SODIUM CHLORIDE 0.9% 50 ML IVPB SCH ×2 (04:28→08:31)
[2021-12-02] MEDS ORDERED: ROPIVACAINE 5MG/ML 20ML VIAL ONE (06:15)
[2021-12-02] MEDS ORDERED: fentaNYL (PF) 50 MCG/ML 5 ML AMP ONE (06:15)
[2021-12-02] MEDS ORDERED: SODIUM CHLORIDE 0.9% 100 ML BAG ONE (06:15)
[2021-12-02] MEDS ORDERED: OXYTOCIN 30 UNITS/500 ML NS 30 UNIT in SALINE 1 500ML.BAG IV SCH ×2 (08:30→11:45)
--- NOTE | 2021-12-02 09:24 | P.HPOB ---
History of Present Illness H&P Date: 12/02/21 Chief Complaint: IUP @ 38 1/7 weeks, labor This is a 31-year-old 1 para 0 at 38 1/7 (EDC of 12/15 based on first trimester US,) present to labor and delivery with complaints of regular painful contractions. Patient was admitted for labor overnight. Patient denied loss of fluid, good movement was appreciated. Patient has been receiving routine care which has been essentially uncomplicated. Patient has a prior diagnosis of polycythemia, patient did see hematology Dr Rutherford which disagreed with this diagnosis. Patient has been on iron supplementation for anemia. In addition she has a history of a gastric sleeve. On labs she has a blood type of B+, rubella status immune, RPR nonreactive, hep B surface antigen negative, HIV negative. Patient did receive her flu shot on 07/04, T dap on 10/20. Group beta strep cultures were noted to be positive on 11/22. 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 back surgery age 20 Hx. gastric sleeve aug 2012, R ankle Past Anesthesia/Blood Transfusion Reactions: No Reported Reaction Past Psychological History: Anxiety, Depression, Panic Disorder Smoking Status: Never smoker Past Alcohol Use History: None Reported Past Drug Use History: None Reported - Past Family History Father History Unknown: Yes Family Medical History: Blood Disorder, Cancer, Hypertension Additional Family Medical History / Comment(s): Father - blood disorder prostate cancer Medications and Allergies Home Medications Medication Instructions Recorded Confirmed Type Aspirin [Children's Aspirin] 81 mg PO DAILY 08/12/21 12/01/21 History Pnv,Calcium 72/Iron/Folic Acid 1 tab PO DAILY 08/12/21 12/01/21 History [ Plus Tablet] Ferrous Sulfate [Iron] 1 tab PO DAILY 12/01/21 12/01/21 History Allergies Allergy/AdvReac Type Severity Reaction Status Date / Time No Known Allergies Allergy Verified 11/01/21 15:47 Exam Osteopathic Statement: *. No significant issues noted on an osteopathic structural exam other than those noted in the History and Physical/Consult. 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 Breathing is noted to be nonlabored, heart has a regular rate and rhythm, abdomen is gravid and appropriate for gestational age, on cervical exam she is 8/90/-2 station, amniotomy is performed and meconium- stained fluid was appreciated. Results Result Diagrams: 12/01/21 23:50 Abnormal Lab Results - Last 24 Hours (Table) 12/01/21 Range/Units 23:50 RBC 5.55 H (3.80-5.40) m/uL MCV 70.7 L (80.0-100.0) fL MCH 20.5 L (25.0-35.0) pg MCHC 29.0 L (31.0-37.0) g/dL RDW 19.5 H (11.5-15.5) % Assessment and Plan (1) Term Current Visit: Yes Status: Acute Code(s): Z34.90 - ENCNTR FOR SUPRVSN OF NORMAL , UNSP, UNSP TRIMESTER SNOMED Code(s): 18605886 (2) Positive GBS test Current Visit: Yes Status: Acute Code(s): B95.1 - STREPTOCOCCUS, GROUP B, CAUSING DISEASES CLASSD ELSWHR SNOMED Code(s): 354453911 (3) Active labor Current Visit: Yes Status: Acute Code(s): DIJ2761 - SNOMED Code(s): 11 0252915 Plan: 31-year-old at weeks that presents to labor and delivery in active labor. Patient is admitted to labor and delivery, patient progressed through la bor eventually becoming uncomfortable and did request epidural placement. Patient underwent amniotomy this morning, meconium-stained fluid was appreciated. Anticipate spontaneous vaginal delivery.
[2021-12-02] MEDS ORDERED: ZOLPIDEM 5 MG TAB PO PRN (11:36)
[2021-12-02] MEDS ORDERED: diphenhydrAMINE 50 MG/ML 1 ML VIAL IVP PRN ×2 (11:36)
[2021-12-02] MEDS ORDERED: LANOLIN CREAM 5 GM TUBE TOPICAL PRN (11:36)
[2021-12-02] MEDS ORDERED: diphenhydrAMINE 50 MG CAP PO PRN (11:36)
[2021-12-02] MEDS ORDERED: BENZOCAINE/MENTHOL SPRAY 1 GM/SPRAY AEROSOL TOPICAL PRN (11:36)
[2021-12-02] MEDS ORDERED: HYDROCORTISONE 2.5% RECTAL CREAM 30 GM TUBE RECTAL PRN (11:36)
[2021-12-02] MEDS ORDERED: diphenhydrAMINE 25 MG CAP PO PRN (11:36)
[2021-12-02] MEDS ORDERED: SIMETHICONE 80 MG CHEWABLE PO PRN (11:36)
--- NOTE | 2021-12-02 11:36 | P.PROBDLV ---
Vaginal Delivery Note - . Vaginal Delivery Note: 31-year-old 2 para 0010 that presented to labor and delivery at 38 and one sevenths weeks with complaints of regular painful contractions. Patient was admitted to labor and delivery and antibiotic prophylaxis was begun for GBS positive rectovaginal culture. Patient made progress through the evening eventually noted to be 8 cm. Rupture of membrane was preformed, thin meconium- stained fluid was appreciated upon rupture. Patient was noted to be rasmhi irregularly therefore Pitocin augmentation of labor was begun. Patient progressed to complete and precipitously delivered a viable male infant at 1046, weight of 6 lbs. 7 oz. After two-minute delayed the umbilical cord was doubly clamped and cut, the infant was handed to the awaiting ux developer designer given the meconium-stained fluid. Spontaneous cry was noted at . The placenta was delivered spontaneously intact with a three-vessel cord being appreciated. On section the patient's vaginal vault a left lateral sulcus tear was appreciated along with bilateral labial lacerations. Laceration sites were injected with lidocaine. The left labial tear was repaired in usual fashion with 4-0 chromic. The sulcal tear was palpated and with a Funes retractor in place 0 Vicryl was used to close the defect in a running locked fashion. A perineal laceration was appreciated and closed in the usual fashion with 3-0 Rapide. The right labial laceration was not bleeding therefore no repair was needed. On inspection of the patient's sulcal tear a small amount of bleeding was noted therefore Surgicel powder was placed along the edges. The tissue was noted to be friable in nature. Uterus is noted to be firm and below the umbilicus. Estimated blood loss 300 mL. The bladder was drained for approximately 150 mL of clear yellow urine. Patient and tolerated delivery well and are resting comfortably.
[2021-12-02] MEDS: IBUPROFEN 600 MG TAB PO SCH ×3 (12:07→20:00)
[2021-12-02] MEDS: ACETAMINOPHEN TAB 325 MG TAB PO PRN (16:51)
[2021-12-02] MEDS: SENNOSIDES-DOCUSATE SODIUM 1 EACH TAB PO SCH (20:00)
[2021-12-03] MEDS: ACETAMINOPHEN TAB 325 MG TAB PO PRN (00:12)
[2021-12-03] MEDS: IBUPROFEN 600 MG TAB PO SCH ×5 (05:43→23:52)
[2021-12-03 07:43] LABS: Anisocytosis Moderate; Basophils % (A) 0 %; Eosinophils # (A) 0.1 k/uL (0-0.7); Eosinophils % (A) 1 %; Hypochromasia Marked; Lymphocytes # (A) 2.1 k/uL (1.0-4.8); Lymphocytes % (A) 18 %; MCH 20.5 pg (25.0-35.0); MCHC 28.3 g/dL (31.0-37.0); MCV 72.6 fL (80.0-100.0); Mean Platelet Volume 8.9; Microcytosis Marked; Monocytes # (A) 0.6 k/uL (0-1.0); Monocytes % (A) 5 %; Neutrophils # (A) 8.4 k/uL (1.3-7.7); Neutrophils % (A) 72 %; Platelet Count 156 k/uL (150-450); Poikilocytosis Slight; RBC 4.68 m/uL (3.80-5.40); RDW 20.1 % (11.5-15.5); WBC 11.6 k/uL (3.8-10.6)
[2021-12-03 07:46] LABS: HGB 9.6 gm/dL (11.4-16.0)
[2021-12-03] MEDS: PRENATAL VIT-IRON-FOLIC ACID 1 EACH CAP PO SCH (08:35)
[2021-12-03] MEDS: FERROUS SULFATE 325 MG TAB PO SCH (08:35)
[2021-12-03] MEDS: SENNOSIDES-DOCUSATE SODIUM 1 EACH TAB PO SCH ×2 (08:35→19:47)
--- NOTE | 2021-12-03 11:32 | P.DS ---
Providers Date of admission: 12/01/21 23:27 Expected date of discharge: 12/03/21 Attending physician: Lizette Dejesus Primary care physician: Physician Nonstaff - Discharge Diagnosis(es) (1) Normal spontaneous vaginal delivery Current Visit: Yes Status: Acute Hospital Course: The patient is a 31-year-old 1 para 0 admitted at 38 and one sevenths weeks by good dating parameters. She is admitted in early labor with all signs reassuring. Her was uncomplicated and group B strep status is negative. She does carry a history of polycythemia as well as a history of gastric sleeve surgery. On labor and delivery,, the patient reached 8 cm of dilation at which time she underwent artificial rupture of membranes for lightly meconium-stained fluid. She progressed to complete and then delivered fairly precipitously a viable 6 lbs. 7 oz. baby boy with Apgars of 8 at 1 minute and 9 at 5 minutes. She did have fairly significant lacerations repaired in standard fashion. There is no significant ongoing bleeding on day #1. She was deemed stable for discharge on day #1 and was discharged home to follow-up in the office in 6 weeks' time routinely. Discharge instructions included calling for any significantly increased bleeding or foul-smelling lochia, significantly increased fever abdominal pain, perineal complaints, breast complaints, or anything else that concerned her. She was additionally instructed to have nothing in the vagina for at least 6 weeks time to include intercourse. She understood her instructions and agrees to follow up as noted above. Discharge medications included continue vitamins as she has opted to breast-feed. She is otherwise to use [id number] analgesic pain medications as needed. Maternal blood type is B+ and rubella status is immune. Procedures: #1. Pitocin augmentation #2. Artificial rupture of membranes #3. Normal spontaneous vaginal delivery #4. Repair of perineal, vaginal, and labial lacerations Patient Condition at Discharge: Stable Plan - Discharge Summary New Discharge Prescriptions: No Action Pnv,Calcium 72/Iron/Folic Acid [ Plus Tablet] 1 tab PO DAILY Aspirin [Children's Aspirin] 81 mg PO DAILY Ferrous Sulfate [Iron] 1 tab PO DAILY Discharge Medication List Aspirin [Children's Aspirin] 81 mg PO DAILY 08/12/21 [History] Pnv,Calcium 72/Iron/Folic Acid [ Plus Tablet] 1 tab PO DAILY 08/12/21 [ History] Ferrous Sulfate [Iron] 1 tab PO DAILY 12/01/21 [History] Follow up Appointment(s)/Referral(s): Lizette Dejesus DO [Doctor of Osteopathic Medicine] - 6 Weeks Discharge Disposition: HOME SELF-CARE
[2021-12-04 00:48] VITALS: PULSE 87; TEMP 98.2
[2021-12-04] MEDS: IBUPROFEN 600 MG TAB PO SCH (06:14)
[2021-12-04] MEDS: FERROUS SULFATE 325 MG TAB PO SCH (08:22)
[2021-12-04] MEDS: ACETAMINOPHEN TAB 325 MG TAB PO PRN (08:22)
[2021-12-04] MEDS: PRENATAL VIT-IRON-FOLIC ACID 1 EACH CAP PO SCH (08:23)
[2021-12-04] MEDS: SENNOSIDES-DOCUSATE SODIUM 1 EACH TAB PO SCH (08:23)
[2021-12-04 08:34] VITALS: BP 122/80; RESP 14
== END 2021-12-04 10:15 | disposition home or self-care (01) | DRG 807 ==
LOC: FBPOP 21:48 → 4FBP 23:27
PROVIDERS: ADMIT Obstetrics & Gynecology; ATTEND Obstetrics & Gynecology Obstetrics
PROC: 10E0XZZ Delivery of Products of Conception, External Approach (ICD-10-PCS; principal; 2021-12-02)
PROC: 0HQ9XZZ Repair Perineum Skin, External Approach (ICD-10-PCS; 2021-12-02)
DX: O99.12 Other diseases of the blood and blood-forming organs and certain disorders involving the immune mechanism complicating childbirth (principal); Z37.0 Single live birth; Z3A.38 38 weeks gestation of pregnancy; D45 Polycythemia vera; D64.9 Anemia, unspecified; O99.02 Anemia complicating childbirth; O99.824 Streptococcus B carrier state complicating childbirth; Z79.82 Long term (current) use of aspirin; O77.0 Labor and delivery complicated by meconium in amniotic fluid; O70.0 First degree perineal laceration during delivery; O16.4 Unspecified maternal hypertension, complicating childbirth; O99.844 Bariatric surgery status complicating childbirth; O62.3 Precipitate labor; Z82.49 Family history of ischemic heart disease and other diseases of the circulatory system
CPT/HCPCS: 59025; 85025; 86850; 86900; 86901; 88307; 99213